=== PATIENT | female | born 1960 | race Caucasian/White ===

== ENCOUNTER 2022-04-22 10:12 | Emergency (ER) | payer BC, OTHER ==
[2022-04-22] MEDS ORDERED: DEXAMETHASONE SOD PHOSPHATE 10 MG/1 ML VIAL PO ONE (10:15)
[2022-04-22] MEDS ORDERED: ALBUTEROL SO4 2.5/IPRATROPIUM 0.5 INH SOL 3 ML VIAL.NEB. NEB ONE ×2 (10:15→10:38)
[2022-04-22 10:30] VITALS: BP 134/95; PULSE 86; RESP 20; TEMP 99; BMI 24.9
[2022-04-22] MEDS ORDERED: DEXAMETHASONE SOD PHOSPHATE 10 MG/1 ML VIAL ONE (10:38)
[2022-04-22] MEDS ORDERED: ALBUTEROL SO4 HFA INHALER IH ONE ×2 (11:52→12:32)
[2022-04-22 12:15] LABS: HEMATOCRIT 39.6 % (32.4-45.2); HEMOGLOBIN 13.9 G/dL (10.7-15.3); MCH 31.6 pg (25.7-33.7); MCHC 35.2 g/dl (32.0-36.0); MEAN CELL VOLUME 89.7 fl (80-96); MEAN PLT VOLUME 9.7 fl (7.5-11.1); PLATELET COUNT 213.6 10^3/uL (134-434); RBC 4.41 10^6/uL (3.60-5.2); RDW 13.8 % (11.6-15.6); WHITE BLOOD COUNT 5.8 10^3/uL (4.0-10.8)
[2022-04-22 12:17] LABS: ALBUMIN 4.2 g/dl (3.4-5.0); BILIRUBIN,TOTAL 0.4 mg/dl (0.2-1); CREATININE 0.7 mg/dl (0.55-1.3); TOT PROT 7.1 g/dl (6.4-8.2)
[2022-04-22 12:45] LABS: CALCIUM 9.4 mg/dl (8.5-10)
[2022-04-22 12:51] LABS: PLATELET ESTIMATE ADEQUATE
== END 2022-04-22 13:11 | disposition home or self-care (01) ==
LOC: FER 10:12
PROC: 3E0F7GC Introduction of Other Therapeutic Substance into Respiratory Tract, Via Natural or Artificial Opening (ICD-10-PCS; principal; 2022-04-22)
DX: R06.2 Wheezing (principal)
CPT/HCPCS: 0241U-QW; 36415; 71045-TC-FY; 80053; 85027; 87651; 99284-25; J1100